=== PATIENT | female | born 1995 | race Caucasian/White ===

== ENCOUNTER 2018-10-05 17:29 | Emergency (ER) | payer OTHER ==
[2018-10-05] MEDS ORDERED: NS 1,000 ML IV ONE (18:12)
--- NOTE | 2018-10-05 18:12 | EDPHY ---
H & P Stated Complaint: running 40 min ago/dcute n/v dizzyness/vision blacked out/now resolved Time Seen by Provider: 10/05/18 18:07 HPI/ROS: CHIEF COMPLAINT: Vasovagal episode HISTORY OF PRESENT ILLNESS: The patient presents the ED after a likely vasovagal episode. The patient reportedly was running. She was overcome with a sensation of nausea and diaphoresis. She reportedly felt lightheaded and as if she might pass out. She reported associated blurry vision. The patient denies any antecedent palpitations or shortness of breath. The patient reports she exercises frequently without symptoms of syncope, chest pain or difficulty breathing. She has no significant past medical history. The patient does report she is a vegetarian. She may have had slightly decreased caloric intake over the past day. The patient takes no regular medications. She denies any asymmetric calf pain or swelling. The patient denies fever, cough or congestion. REVIEW OF SYSTEMS: A comprehensive 10 point review of systems is otherwise negative aside from elements mentioned in the history of present illness. Source: Patient Exam Limitations: No limitations - Personal History LMP (Females 10-55): 1-7 Days Ago Current Tetanus Diphtheria and Acellular Pertussis (TDAP): Yes - Medical/Surgical History Hx Asthma: No Hx Chronic Respiratory Disease: No Hx Diabetes: No Hx Cardiac Disease: No Hx Renal Disease: No Hx Cirrhosis: No Hx Alcoholism: No Hx HIV/AIDS: No Hx Splenectomy or Spleen Trauma: No Other PMH: denies - Family History Significant Family History: No pertinent family hx - Social History Smoking Status: Never smoked - Physical Exam Exam: General Appearance: Alert, tearful, anxious Eyes: Pupils equal and round no pallor or injection ENT, Mouth: Mucous membranes moist Respiratory: There are no retractions, lungs are clear to auscultation Cardiovascular: Regular rate and rhythm Gastrointestinal: Abdomen is soft and nontender, no masses, bowel sounds normal Neurological: A&O, normal motor function, normal sensory exam, normal cranial nerves Skin: Warm and dry, no rashes Musculoskeletal: Neck is supple nontender Extremities: symmetrical, full range of motion Psychiatric: Patient is oriented X 3, there is no agitation Constitutional: Initial Vital Signs Temperature (C) 36.5 C 10/05/18 17:38 Heart Rate 74 10/05/18 17:38 Respiratory Rate 18 10/05/18 17:38 Blood Pressure 146/90 H 10/05/18 17:38 O2 Sat (%) 99 10/05/18 17:38 O2 Delivery Mode Room Air Allergies/Adverse Reactions: No Known Allergies Allergy (Unverified 10/05/18 17:37) Home Medications: Medication Instructions Recorded NK [No Known Home Meds] 10/05/18 Medical Decision Making - Diagnostics EKG Interpretation: EKG: Complete interpretation has been separately recorded in the [facility] archive. Summary impression: Sinus rhythm, rate 80, short MI interval ED Course/Re-evaluation: The patient presents to the ED after a vasovagal episode. There are no red flag features of the episode today. She currently is asymptomatic. The patient had an IV established. She received a L of normal saline. Patient denies any family history of sudden . EKG does note a short MI interval. Consultation was made with Dr. Mclaughlin from Cardiology who recommends a office based visit for Holter monitor and possible treadmill test. - Data Points Laboratory Results: Laboratory Results 10/05/18 18:20 10/05/18 18:20 10/05/18 10/05/18 10/05/18 18:20 18:20 18:20 WBC 12.76 10^3/uL H 10^3/uL (3.80-9.50) RBC 4.70 10^6/uL 10^6/uL (4.18-5.33) Hgb 12.5 g/dL L g/dL (12.6-16.3) Hct 38.5 % % (38.0-47.0) MCV 81.9 fL fL (81.5-99.8) MCH 26.6 pg L pg (27.9-34.1) MCHC 32.5 g/dL g/dL (32.4-36.7) RDW 13.4 % % (11.5-15.2) Plt Count 303 10^3/uL 10^3/uL (150-400) MPV 10.2 fL fL (8.7-11.7) Neut % (Auto) 80.8 % H % (39.3-74.2) Lymph % (Auto) 9.9 % L % (15.0-45.0) Becker % (Auto) 8.5 % % (4.5-13.0) Eos % (Auto) 0.2 % L % (0.6-7.6) Baso % (Auto) 0.2 % L % (0.3-1.7) Nucleat RBC Rel Count 0.0 % % (0.0-0.2) Absolute Neuts (auto) 10.31 10^3/uL H 10^3/uL (1.70-6.50) Absolute Lymphs (auto) 1.26 10^3/uL 10^3/uL (1.00-3.00) Absolute Monos (auto) 1.09 10^3/uL H 10^3/uL (0.30-0.80) Absolute Eos (auto) 0.03 10^3/uL 10^3/uL (0.03-0.40) Absolute Basos (auto) 0.02 10^3/uL 10^3/uL (0.02-0.10) Absolute Nucleated RBC 0.00 10^3/uL 10^3/uL (0-0.01) Immature Gran % 0.4 % % (0.0-1.1) Immature Gran # 0.05 10^3/uL 10^3/uL (0.00-0.10) Sodium 137 mEq/L mEq/L (135-145) Potassium 3.7 mEq/L mEq/L (3.5-5.2) Chloride 106 mEq/L mEq/L (97-110) Carbon Dioxide 23 mEq/l mEq/l (22-31) Anion Gap 8 mEq/L mEq/L (6-14) BUN 15 mg/dL mg/dL (7-23) Creatinine 0.9 mg/dL mg/dL (0.6-1.0) Estimated GFR > 60 Glucose 100 mg/dL mg/dL (70-100) Calcium 9.6 mg/dL mg/dL (8.5-10.4) Beta HCG, Qual NEGATIVE Medications Given: Discontinued Medications Sodium Chloride (Ns) 1,000 mls @ 0 mls/hr IV EDNOW ONE; Wide Open PRN Reason: Protocol Stop: 10/05/18 18:13 Last Admin: 10/05/18 18:36 Dose: 1,000 mls Departure - Departure Disposition: Home, Routine, Self-Care Clinical Impression: Vasovagal episode, Shortened MI interval Condition: Good Instructions: Syncope (DC) Additional Instructions: 1. Please contact Dr. Mclaughlin from Cardiology tomorrow. When making the appointment please be sure to tell them that Dr. Mclaughlin wanted you seen in clinic this week. You have a subtle abnormality under EKG which may simply be a normal variant. Given the fact you passed out further testing may be indicated including a treadmill stress test or outpatient shade bander. 2. Return to the ED for any chest pain, shortness of breath, recurrent symptoms or other concerns. Referrals: Andre Mclaughlin MD [Medical Doctor] - As per Instructions
[2018-10-05 18:30] LABS: PLATELET COUNT 303 10^3/uL (150-400)
[2018-10-05 19:37] VITALS: BP 133/98
--- NOTE | 2018-10-05 19:45 | CPEKG ---
Test Reason : OPEN Blood Pressure : / mmHG Vent. Rate : 080 BPM Atrial Rate : 084 BPM P-R Int : 104 ms QRS Dur : 094 ms QT Int : 376 ms P-R-T Axes : 022 061 001 degrees QTc Int : 434 ms Sinus rhythm Short NM interval Confirmed by Messi Puri ([id number]) on 10/05/2018 7:44:57 PM Referred By: Messi Puri Confirmed By:Messi Puri
== END 2018-10-05 19:47 | disposition home or self-care (01) ==
DX: R55 Syncope and collapse (principal); R94.31 Abnormal electrocardiogram [ECG] [EKG]; E86.9 Volume depletion, unspecified